=== PATIENT | male | born 1965 | race Caucasian/White ===

== ENCOUNTER → 2017-06-15 | Outpatient (CLI) | payer BC ==
[2017-06-15 12:14] LABS: BASOPHILS # (AUTO) 0.05 x10^3/uL (0-0.1); BASOPHILS % (AUTO) 1 % (0-1); EOSINOPHILS # (AUTO) 0.21 x10^3/uL (0-0.4); EOSINOPHILS % (AUTO) 3 % (1-7); LYMPHOCYTES # (AUTO) 2.35 x10^3/uL (1-3.4); LYMPHOCYTES % (AUTO) 34 % (22-44); MD NO; MEAN CORPUSCULAR HEMOGLOBIN 30.1 pg (27.5-34.5); MEAN CORPUSCULAR VOLUME 88.7 fL (81-97); MONOCYTES # (AUTO) 0.46 x10^3/uL (0.2-0.8); MONOCYTES % (AUTO) 7 % (2-9); NEUTROPHILS # (AUTO) 3.92 x10^3/uL (1.8-6.8); NEUTROPHILS % (AUTO) 56 % (42-75); PLATELET COUNT 171 x10^3/uL (130-400); RED BLOOD COUNT 4.91 x10^6/uL (4.38-5.82); RED CELL DISTRIBUTION WIDTH 13.1 % (9.4-14.8)
[2017-06-15 12:34] LABS: ALANINE AMINOTRANSFERASE 27 U/L (12-78); ALBUMIN 3.9 g/dL (3.4-5.0); ANION GAP 8 mmol/L (5-15); CALCIUM 8.6 mg/dL (8.5-10.1); CHLORIDE 109 mmol/L (98-107)
[2017-06-15 12:37] LABS: ALKALINE PHOSPHATASE 52 U/L (45-117); BILIRUBIN,TOTAL 0.5 mg/dL (0.2-1.0); CREATININE 0.92 mg/dL (0.7-1.3); TOTAL PROTEIN 6.9 g/dL (6.4-8.2)
== END | disposition home or self-care (01) ==
LOC: STAR 11:15
PROVIDERS: ATTEND Surgery
DX: Z01.818 Encounter for other preprocedural examination (principal); R00.1 Bradycardia, unspecified
CPT/HCPCS: 36415; 71046; 80053; 85025; 93005

== ENCOUNTER 2017-06-22 05:52 | Inpatient (IN) | payer BC ==
[2017-06-15 11:42] VITALS: BP 122/84
[~2017-06-22] VITALS: Ht 188 cm; Wt 95.0 kg
[2017-06-22] MEDS ORDERED: ACETAMINOPHEN 500 MG TABLET ONE (06:46)
[2017-06-22] MEDS ORDERED: GABAPENTIN 300 MG CAPSULE ONE (06:47)
[2017-06-22] MEDS: LACTATED RINGERS 1,000 ML IV SCH ×2 (06:56→06:57)
[2017-06-22] MEDS ORDERED: GABAPENTIN 300 MG CAPSULE PO ONE (07:00)
[2017-06-22] MEDS ORDERED: ACETAMINOPHEN 500 MG TABLET PO ONE (07:00)
[2017-06-22] MEDS ORDERED: BUPIVACAINE/PF 0.25% ONE (07:05)
[2017-06-22] MEDS ORDERED: MIDAZOLAM 1 MG/ML, 2ML ONE (07:18)
[2017-06-22] MEDS ORDERED: FENTANYL PF 250 MCG/5ML ONE (07:18)
[2017-06-22] MEDS ORDERED: NEOSTIGMINE 1 MG/ML, 10ML ONE (07:20)
[2017-06-22] MEDS ORDERED: SUCCINYLCHOLINE 20 MG/ML, 10ML ONE (07:20)
[2017-06-22] MEDS ORDERED: ONDANSETRON 2MG/ML, 2ML ONE (07:20)
[2017-06-22] MEDS ORDERED: CEFAZOLIN 1,000 MG ONE (07:20)
[2017-06-22] MEDS ORDERED: PROPOFOL 10 MG/ML, 20ML ONE (07:20)
[2017-06-22] MEDS ORDERED: GLYCOPYRROLATE 0.2MG/1ML, 5ML ONE (07:20)
[2017-06-22] MEDS ORDERED: DEXAMETHASONE 4 MG/ML, 1ML ONE (07:20)
[2017-06-22] MEDS ORDERED: ROCURONIUM 10 MG/ML,10ML ONE (07:20)
[2017-06-22] MEDS ORDERED: LIDOCAINE 4%, 4 ML SYR/CANN TP ONE (07:24)
[2017-06-22] MEDS ORDERED: ONDANSETRON 2MG/ML, 2ML IVPush PRN (07:30)
[2017-06-22] MEDS ORDERED: morphine SULFATE 10 MG/ML, 1ML IV PRN (07:30)
[2017-06-22] MEDS ORDERED: OXYcodone 5 MG/5 ML ORAL.SOL UDC PO PRN (07:30)
[2017-06-22] MEDS ORDERED: HYDROcodone/APAP 7.5-325MG/15ML UDC PO PRN (07:30)
[2017-06-22] MEDS ORDERED: ACETAMINOPHEN 325 MG TABLET PO PRN (07:30)
[2017-06-22] MEDS ORDERED: PROMETHAZINE 25 MG/ML, 1ML IV PRN (07:30)
[2017-06-22] MEDS ORDERED: CEFOTETAN 2 GM ONE (07:35)
[2017-06-22] MEDS ORDERED: FENTANYL PF 100 MCG/2ML ONE ×2 (09:01→09:36)
[2017-06-22] MEDS ORDERED: OXYcodone 5 MG/5 ML ORAL.SOL UDC ONE (09:31)
[2017-06-22] MEDS: FENTANYL PF 100 MCG/2ML IV PRN ×3 (09:39→10:04)
[2017-06-22] MEDS ORDERED: DIPHENHYDRAMINE 25 MG CAPSULE PO PRN (12:00)
[2017-06-22] MEDS ORDERED: LORazepam 2 MG/ML, 1ML IVPush PRN (12:00)
[2017-06-22] MEDS ORDERED: OXYcodone IR 5MG TABLET PO PRN (12:00)
[2017-06-22] MEDS ORDERED: DEXAMETHASONE 4 MG/ML, 1ML IVPush PRN (12:00)
[2017-06-22] MEDS ORDERED: CALCIUM CARBONATE 500 MG TAB.CHEW PO PRN (12:00)
[2017-06-22] MEDS ORDERED: LORazepam 1MG TABLET PO PRN (12:00)
[2017-06-22] MEDS ORDERED: DIPHENHYDRAMINE 50 MG/ML, 1ML IVPush PRN (12:00)
[2017-06-22] MEDS ORDERED: ONDANSETRON 2MG/ML, 2ML IV PRN (12:00)
[2017-06-22] MEDS ORDERED: SCOPOLAMINE PATCH, 1.5MG PATCH.TD72 TD PRN (12:00)
[2017-06-22] MEDS ORDERED: HALOPERIDOL 5 MG/ML IVPush PRN (12:00)
[2017-06-22] MEDS ORDERED: HYDROmorphone 1 MG/ML, 1ML IVPush PRN (12:00)
[2017-06-22] MEDS: D5%-0.45NACL+KCL 20MEQ 1,000 ML IV SCH (13:12)
[2017-06-22] MEDS: ACETAMINOPHEN 500 MG TABLET PO SCH ×2 (13:13→18:36)
[2017-06-22 13:31] VITALS: BP 147/93
[2017-06-22] MEDS: IBUPROFEN 800 MG TABLET PO SCH ×2 (15:26→20:40)
[2017-06-22 18:54] VITALS: BP 109/60
[2017-06-23 00:05] VITALS: BP 118/71
[2017-06-23] MEDS: ACETAMINOPHEN 500 MG TABLET PO SCH ×4 (01:06→19:28)
[2017-06-23] MEDS ORDERED: ENOXAPARIN 40 MG/0.4 ML SQ SCH (03:00)
[2017-06-23 03:55] VITALS: BP 134/78
[2017-06-23 05:14] LABS: BASOPHILS # (AUTO) 0.02 x10^3/uL (0-0.1); BASOPHILS % (AUTO) 0 % (0-1); EOSINOPHILS # (AUTO) 0.07 x10^3/uL (0-0.4); EOSINOPHILS % (AUTO) 1 % (1-7); LYMPHOCYTES # (AUTO) 1.62 x10^3/uL (1-3.4); LYMPHOCYTES % (AUTO) 12 % (22-44); MD NO; MEAN CORPUSCULAR HEMOGLOBIN 29.9 pg (27.5-34.5); MEAN CORPUSCULAR HGB CONC 33.8 g/dL (33.2-36.2); MEAN CORPUSCULAR VOLUME 88.4 fL (81-97); MEAN PLATELET VOLUME 9.1 fL (7.4-10.4); MONOCYTES # (AUTO) 1.06 x10^3/uL (0.2-0.8); MONOCYTES % (AUTO) 8 % (2-9); NEUTROPHILS # (AUTO) 10.69 x10^3/uL (1.8-6.8); NEUTROPHILS % (AUTO) 79 % (42-75); PLATELET COUNT 155 x10^3/uL (130-400); RED BLOOD COUNT 4.66 x10^6/uL (4.38-5.82)
[2017-06-23 05:33] LABS: ANION GAP 5 mmol/L (5-15); CALCIUM 8.9 mg/dL (8.5-10.1); CHLORIDE 108 mmol/L (98-107)
[2017-06-23 05:34] LABS: CREATININE 1.08 mg/dL (0.7-1.3)
[2017-06-23 06:56] VITALS: BP 127/77
[2017-06-23] MEDS: D5%-0.45NACL+KCL 20MEQ 1,000 ML IV SCH (08:16)
[2017-06-23] MEDS: IBUPROFEN 800 MG TABLET PO SCH ×3 (09:15→23:57)
[2017-06-23 13:26] VITALS: BP 121/77
[2017-06-23 19:01] VITALS: BP 123/78
[2017-06-24] MEDS: ACETAMINOPHEN 500 MG TABLET PO SCH ×4 (01:34→19:03)
[2017-06-24 01:39] VITALS: BP 110/72
[2017-06-24] MEDS: D5%-0.45NACL+KCL 20MEQ 1,000 ML IV SCH (04:00)
[2017-06-24 05:25] LABS: BASOPHILS # (AUTO) 0.04 x10^3/uL (0-0.1); BASOPHILS % (AUTO) 1 % (0-1); EOSINOPHILS # (AUTO) 0.12 x10^3/uL (0-0.4); EOSINOPHILS % (AUTO) 1 % (1-7); LYMPHOCYTES # (AUTO) 2.45 x10^3/uL (1-3.4); LYMPHOCYTES % (AUTO) 27 % (22-44); MD NO; MEAN CORPUSCULAR HEMOGLOBIN 29.7 pg (27.5-34.5); MEAN CORPUSCULAR HGB CONC 33.6 g/dL (33.2-36.2); MEAN CORPUSCULAR VOLUME 88.3 fL (81-97); MEAN PLATELET VOLUME 9.4 fL (7.4-10.4); MONOCYTES # (AUTO) 0.71 x10^3/uL (0.2-0.8); MONOCYTES % (AUTO) 8 % (2-9); NEUTROPHILS # (AUTO) 5.79 x10^3/uL (1.8-6.8); NEUTROPHILS % (AUTO) 64 % (42-75); PLATELET COUNT 168 x10^3/uL (130-400); RED CELL DISTRIBUTION WIDTH 13.6 % (9.4-14.8)
[2017-06-24 05:33] LABS: ANION GAP 7 mmol/L (5-15); CALCIUM 8.1 mg/dL (8.5-10.1); CHLORIDE 106 mmol/L (98-107); CREATININE 0.94 mg/dL (0.7-1.3)
[2017-06-24 06:43] VITALS: BP 121/77
[2017-06-24 07:42] VITALS: BP 104/68
[2017-06-24 07:43] VITALS: BP 104/68
[2017-06-24] MEDS: SODIUM CHLORIDE 0.9% 1,000ML IVBOLUS ONE ×2 (08:25→08:40)
[2017-06-24 12:18] LABS: BASOPHILS # (AUTO) 0.02 x10^3/uL (0-0.1); BASOPHILS % (AUTO) 0 % (0-1); EOSINOPHILS # (AUTO) 0.05 x10^3/uL (0-0.4); EOSINOPHILS % (AUTO) 0 % (1-7); LYMPHOCYTES # (AUTO) 1.88 x10^3/uL (1-3.4); LYMPHOCYTES % (AUTO) 17 % (22-44); MD NO; MEAN CORPUSCULAR HEMOGLOBIN 30.5 pg (27.5-34.5); MEAN CORPUSCULAR VOLUME 89.7 fL (81-97); MEAN PLATELET VOLUME 9.2 fL (7.4-10.4); MONOCYTES % (AUTO) 5 % (2-9); NEUTROPHILS # (AUTO) 8.79 x10^3/uL (1.8-6.8); NEUTROPHILS % (AUTO) 78 % (42-75); PLATELET COUNT 169 x10^3/uL (130-400); RED CELL DISTRIBUTION WIDTH 13.4 % (9.4-14.8)
[2017-06-24 12:53] VITALS: BP 114/74
[2017-06-24 19:39] VITALS: BP 122/77
[2017-06-25] MEDS: D5%-0.45NACL+KCL 20MEQ 1,000 ML IV SCH
[2017-06-25] MEDS: ACETAMINOPHEN 500 MG TABLET PO SCH ×2 (01:21→06:29)
[2017-06-25 01:28] VITALS: BP 129/81
[2017-06-25 05:12] LABS: BASOPHILS # (AUTO) 0.04 x10^3/uL (0-0.1); BASOPHILS % (AUTO) 0 % (0-1); EOSINOPHILS # (AUTO) 0.26 x10^3/uL (0-0.4); EOSINOPHILS % (AUTO) 2 % (1-7); LYMPHOCYTES # (AUTO) 2.72 x10^3/uL (1-3.4); LYMPHOCYTES % (AUTO) 24 % (22-44); MD NO; MEAN CORPUSCULAR HEMOGLOBIN 30.6 pg (27.5-34.5); MEAN CORPUSCULAR HGB CONC 34.3 g/dL (33.2-36.2); MEAN CORPUSCULAR VOLUME 89.2 fL (81-97); MEAN PLATELET VOLUME 9.3 fL (7.4-10.4); MONOCYTES # (AUTO) 0.78 x10^3/uL (0.2-0.8); MONOCYTES % (AUTO) 7 % (2-9); NEUTROPHILS % (AUTO) 67 % (42-75); PLATELET COUNT 160 x10^3/uL (130-400); RED BLOOD COUNT 3.31 x10^6/uL (4.38-5.82); RED CELL DISTRIBUTION WIDTH 13.7 % (9.4-14.8)
[2017-06-25 05:24] LABS: ANION GAP 5 mmol/L (5-15); CALCIUM 8.4 mg/dL (8.5-10.1); CHLORIDE 108 mmol/L (98-107)
[2017-06-25 05:26] LABS: CREATININE 0.78 mg/dL (0.7-1.3)
[2017-06-25 06:40] VITALS: BP 120/72
[2017-06-25 09:32] VITALS: BP 118/74
== END 2017-06-25 10:00 | disposition home or self-care (01) | DRG 331 ==
LOC: OUT 05:52 → 4NOR 10:20 → OUT 10:57 → DCLOUNGE 06-25 09:42
PROVIDERS: ADMIT Surgery; ATTEND Surgery
PROC: 0DTF4ZZ Resection of Right Large Intestine, Percutaneous Endoscopic Approach (ICD-10-PCS; principal; 2017-06-22 07:30)
DX: K38.8 Other specified diseases of appendix (principal)
CPT/HCPCS: 36415; 80048; 85025; 88304; 88307; 88329; J0690; J1100; J1650; J2250; J2405; J2704; J2710; J3010; J3490; J0330; J3480; J7030; J7120; S0074